=== PATIENT | female | born 1985 | race Caucasian/White ===

== ENCOUNTER 2019-09-22 23:46 | Emergency (ER) | payer MEDICAID ==
[2019-09-23 00:41] LABS: BLOOD UREA NITROGEN,BUN 16 mg/dL (7.0-18.0); CARBON DIOXIDE,CO2 29.9 mmol/L (21.0-32.0); CHLORIDE,CL 102 mmol/L (98-107); GLUCOSE RANDOM 93 mg/dL (74-106); POTASSIUM,K 3.7 mmol/L (3.5-5.1); SODIUM,NA 139 mmol/L (136-145)
--- NOTE | 2019-09-23 00:58 | EDM.PDOC ---
ED HPI GENERAL MEDICAL PROBLEM - General Chief Complaint: Skin Complaint Stated Complaint: BOTH ANKLES HURT Time Seen by Provider: 09/22/19 23:47 Source of Information: Reports: Patient History Limitations: Reports: No Limitations - History of Present Illness INITIAL COMMENTS - FREE TEXT/NARRATIVE: This patient is a 34-year-old female with no pertinent past medical history presenting with lower extremity edema and a rash. She reports a 2-week history of intermittent bilateral lower extremity edema, involving both feet and both ankles. She also reports a 2-week history of intermittent red macular rash to the bilateral lower extremities, involving the lower legs and ankles but not the feet or the thighs. She does report that she has been using a new razor to shave her legs. Denies any new soaps, detergents, carpets, does have a new dog. Rash is not located anywhere else on the body. She denies any fever, chills, urinary changes, history of autoimmune disease, or intraoral or genital ulcers or lesions. No prior history of congestive heart failure, coronary artery disease, renal disease, or hepatic disease. - Related Data Allergies Allergy/AdvReac Type Severity Reaction Status Date / Time No Known Allergies Allergy Verified 08/22/14 13:13 MDT Home Meds: Home Meds Phenazopyridine HCl [Pyridium] 200 mg PO Q8H #6 tablet 08/22/14 [Rx] Sulfamethoxazole/Trimethoprim [Bactrim Ds Tablet] 1 each PO BID #14 tablet 08/22 [Rx] Past Medical History - Past Health History Medical/Surgical History: Denies Medical/Surgical History - Past Surgical History Musculoskeletal Surgical History: Reports: Other (See Below) (Left ankle surgery ) Social & Family History - Family History Family Medical History: Noncontributory ED ROS GENERAL - Review of Systems Review Of Systems: Comprehensive ROS is negative, except as noted in HPI. Constitutional: Denies: Fever, Chills HEENT: Reports: No Symptoms Respiratory: Denies: Shortness of Breath Cardiovascular: Reports: Edema. Denies: Chest Pain, Dyspnea on Exertion, Orthopnea, Syncope Endocrine: Reports: No Symptoms GI/Abdominal: Denies: Abdominal Pain, Diarrhea, Nausea, Vomiting : Denies: Dysuria, Flank Pain, Urgency Musculoskeletal: Reports: Joint Pain, Joint Swelling (Bilateral ankles), Other ( Bilateral ankle pain) Skin: Reports: Rash. Denies: Cyanosis, Jaundice, Pallor, Urticaria Neurological: Reports: No Symptoms Psychiatric: Reports: No Symptoms Hematologic/Lymphatic: Reports: No Symptoms Immunologic: Reports: No Symptoms. Denies: Environmental Allergy ED EXAM, SKIN/RASH Exam: See Below Text/Narrative:: All signs reviewed. Nursing notes reviewed. Constitutional: Awake, alert, non-distressed Head: Normocephalic, atraumatic Eyes: EOMI, PERRL at 3 mm bilaterally, conjunctiva normal, no discharge, no scleral icterus Ears, Nose, Throat: External ears and ears normal, moist oral mucosa Cardiovascular: 2+ radial pulse, capillary refill less than 2 seconds. 1+ lower extremity edema involving the bilateral lower extremities from the ankles to the shins. Pulmonary: normal work of breathing, no accessory muscle use Abdomen/GI: Soft, nontender, nondistended, no guarding or rigidity, no masses Musculoskeletal: No deformities. Integumentary: Appropriate color for ethnicity, warm, dry, no pallor or jaundice. Erythematous macular rash in a scattered distribution involving the bilateral lower extremities, no purpura, no petechiae, no intraoral oral mucosal lesions appreciated. Neurologic: Alert, answering questions appropriately, normal speech, no facial droop, moving all extremities well Psychiatric: Appropriate mood and affect, normal thought process Course - Vital Signs Text/Narrative:: 34-year-old female presenting with a rash and new lower extremity edema. On arrival she was tachycardic but afebrile, nontoxic-appearing, well-appearing. Physical examination revealed a erythematous macular rash to the lower extremities along with some pedal edema. No evidence of intraoral involvement, no rash outside of the legs. Did notice resting tachycardia but she denies any history of chest discomfort, shortness of breath, unilateral leg swelling, volume depletion, or hemorrhage. Heart rate normalized to 92 prior to discharge without any intervention IV access was established and labs were sent off. Laboratory work-up was largely unrevealing. CBC shows normal cell lines except for mild thrombocytosis , no eosinophilia. Electrolyte panel is reassuring. Renal function is normal. Albumin normal. Troponin and BNP are within normal limits. Normal hepatic markers. Urinalysis shows trace blood, positive nitrites, 1+ bacteria, small leukocyte esterase, but patient has no symptoms to suggest cystitis, so suspect this could be asymptomatic bacteria. Regarding the patient's pedal edema, there is no evidence of congestive heart failure, hepatic failure, or renal failure. I recommended [id number] compression stockings along with elevating her feet at night and decreasing her salt intake and having her follow-up with a primary medical doctor. I am suspicious that her lower extremity rash could be due to the new razor that she is using to shave both of her legs. No evidence of a systemic allergic reaction or mucosal involvement. Recommended that she change her razor and shaving products and also recommended that she try [id number] Benadryl cream or oral Benadryl if needed for any itching. Did not recommend steroids this point. Patient is well-appearing and stable to discharge with outpatient primary care follow-up. Strict ED return precautions were provided and all questions were answered prior to discharge. Last Recorded V/S: Last Vital Signs Temp 36.2 C 09/22/19 23:58 Pulse 122 H 09/22/19 23:58 Resp 18 09/22/19 23:58 BP 127/75 09/22/19 23:58 Pulse Ox 99 09/22/19 23:58 - Orders/Labs/Meds Orders: Active Orders 24 hr Category Date Time Status EKG 12 Lead [EKG Documentation Completion] [RC] STAT Care 09/23/19 00:03 Active Labs: Laboratory Tests 09/23/19 09/23/19 09/23/19 Range/Units 00:06 00:06 00:06 WBC 9.44 (4.0-11.0) K/uL RBC 4.68 (4.30-5.90) M/uL Hgb 13.3 (12.0-16.0) g/dL Hct 41.4 (36.0-46.0) % MCV 88.5 (80.0-98.0) fL MCH 28.4 (27.0-32.0) pg MCHC 32.1 (31.0-37.0) g/dL RDW Std Deviation 45.1 (28.0-62.0) fl RDW Coeff of Mj 14 (11.0-15.0) % Plt Count 421 H (150-400) K/uL MPV 9.40 (7.40-12.00) fL Neut % (Auto) 47.8 L (48.0-80.0) % Lymph % (Auto) 41.8 H (16.0-40.0) % [place] % (Auto) 7.4 (0.0-15.0) % Eos % (Auto) 2.8 (0.0-7.0) % Baso % (Auto) 0.2 (0.0-1.5) % Neut # (Auto) 4.5 (1.4-5.7) K/uL Lymph # (Auto) 4.0 H (0.6-2.4) K/uL [place] # (Auto) 0.7 (0.0-0.8) K/uL Eos # (Auto) 0.3 (0.0-0.7) K/uL Baso # (Auto) 0.0 (0.0-0.1) K/uL Nucleated RBC % 0.0 /100WBC Nucleated RBCs # 0 K/uL Sodium 139 (136-145) mmol/L Potassium 3.7 (3.5-5.1) mmol/L Chloride 102 (98-107) mmol/L Carbon Dioxide 29.9 (21.0-32.0) mmol/L BUN 16 (7.0-18.0) mg/dL Creatinine 1.0 (0.6-1.0) mg/dL Est Cr Clr Drug Dosing TNP Estimated GFR (MDRD) > 60.0 ml/min Glucose 93 (74-106) mg/dL Calcium 9.2 (8.5-10.1) mg/dL Total Bilirubin 0.1 L (0.2-1.0) mg/dL AST 23 (15-37) IU/L ALT 18 (14-63) IU/L Alkaline Phosphatase 78 (46-116) U/L Troponin I < 0.050 (0.000-0.056) ng/mL B-Natriuretic Peptide 12 (<100) PG/ML Total Protein 7.1 (6.4-8.2) g/dL Albumin 3.6 (3.4-5.0) g/dL Globulin 3.5 (2.6-4.0) g/dL Albumin/Globulin Ratio 1.0 (0.9-1.6) Urine Color Urine Appearance Urine pH (5.0-8.0) Ur Specific [place] (1.001-1.035) Urine Protein (NEGATIVE) mg/dL Urine Glucose (UA) (NEGATIVE) mg/dL Urine Ketones (NEGATIVE) mg/dL Urine Occult Blood (NEGATIVE) Urine Nitrite (NEGATIVE) Urine Bilirubin (NEGATIVE) Urine Urobilinogen (<2.0) EU/dL Ur Leukocyte Esterase (NEGATIVE) Urine RBC (0-2/HPF) Urine WBC (0-5/HPF) Ur Epithelial Cells (NONE-FEW) Urine Bacteria (NEGATIVE) 09/23/19 Range/Units 00:53 WBC (4.0-11.0) K/uL RBC (4.30-5.90) M/uL Hgb (12.0-16.0) g/dL Hct (36.0-46.0) % MCV (80.0-98.0) fL MCH (27.0-32.0) pg MCHC (31.0-37.0) g/dL RDW Std Deviation (28.0-62.0) fl RDW Coeff of Mj (11.0-15.0) % Plt Count (150-400) K/uL MPV (7.40-12.00) fL Neut % (Auto) (48.0-80.0) % Lymph % (Auto) (16.0-40.0) % [place] % (Auto) (0.0-15.0) % Eos % (Auto) (0.0-7.0) % Baso % (Auto) (0.0-1.5) % Neut # (Auto) (1.4-5.7) K/uL Lymph # (Auto) (0.6-2.4) K/uL [place] # (Auto) (0.0-0.8) K/uL Eos # (Auto) (0.0-0.7) K/uL Baso # (Auto) (0.0-0.1) K/uL Nucleated RBC % /100WBC Nucleated RBCs # K/uL Sodium (136-145) mmol/L Potassium (3.5-5.1) mmol/L Chloride (98-107) mmol/L Carbon Dioxide (21.0-32.0) mmol/L BUN (7.0-18.0) mg/dL Creatinine (0.6-1.0) mg/dL Est Cr Clr Drug Dosing Estimated GFR (MDRD) ml/min Glucose (74-106) mg/dL Calcium (8.5-10.1) mg/dL Total Bilirubin (0.2-1.0) mg/dL AST (15-37) IU/L ALT (14-63) IU/L Alkaline Phosphatase (46-116) U/L Troponin I (0.000-0.056) ng/mL B-Natriuretic Peptide (<100) PG/ML Total Protein (6.4-8.2) g/dL Albumin (3.4-5.0) g/dL Globulin (2.6-4.0) g/dL Albumin/Globulin Ratio (0.9-1.6) Urine Color YELLOW Urine Appearance SLT CLOUDY Urine pH 6.0 (5.0-8.0) Ur Specific [place] >= 1.030 (1.001-1.035) Urine Protein NEGATIVE (NEGATIVE) mg/dL Urine Glucose (UA) NEGATIVE (NEGATIVE) mg/dL Urine Ketones NEGATIVE (NEGATIVE) mg/dL Urine Occult Blood TRACE-INTACT H (NEGATIVE) Urine Nitrite POSITIVE H (NEGATIVE) Urine Bilirubin NEGATIVE (NEGATIVE) Urine Urobilinogen 0.2 (<2.0) EU/dL Ur Leukocyte Esterase SMALL H (NEGATIVE) Urine RBC 1-2 (0-2/HPF) Urine WBC 2-3 (0-5/HPF) Ur Epithelial Cells RARE (NONE-FEW) Urine Bacteria 1+ H (NEGATIVE) Departure - Departure Time of Disposition: 01:29 Disposition: Home, Self-Care 01 Condition: Good Clinical Impression: Bilateral lower extremity edema, Macular rash - Discharge Information *PRESCRIPTION DRUG MONITORING PROGRAM REVIEWED*: Not Applicable *COPY OF PRESCRIPTION DRUG MONITORING REPORT IN PATIENT HELEN: Not Applicable Instructions: Rash, Adult, Peripheral Edema Referrals: [facility] [Provider Group] - 1 Week (For follow-up of swelling and rash.) Forms: ED Department Discharge Additional Instructions: I recommend trying compression stockings along with elevating your legs at night while in bed and reducing the amount of salt in your diet to help address the leg swelling. I would try a different brand of razor and shaving products to see if this makes your leg rash go away. You can try [id number] Benadryl cream or oral Benadryl if you are having issues with itching. Please follow-up with a primary medical clinic in the next week if your symptoms do not improve, and return to the emergency department immediately if your symptoms worsen. The following information is given to patients seen in the emergency department who are being discharged to home. This information is to outline your options for follow-up care. We provide all patients seen in our emergency department with a follow-up referral. The need for follow-up, as well as the timing and circumstances, are variable depending upon the specifics of your emergency department visit. If you don't have a primary care physician on staff, we will provide you with a referral. We always advise you to contact your personal physician following an emergency department visit to inform them of the circumstance of the visit and for follow-up with them and/or the need for any referrals to a consulting specialist. The emergency department will also refer you to a specialist when appropriate. This referral assures that you have the opportunity for follow-up care with a specialist. All of these measure are taken in an effort to provide you with optimal care, which includes your follow-up. Under all circumstances we always encourage you to contact your private physician who remains a resource for coordinating your care. When calling for follow-up care, please make the office aware that this follow-up is from your recent emergency room visit. If for any reason you are refused follow-up, please contact the [facility] Emergency Department at and asked to speak to the emergency department charge nurse. Sepsis Event Note - Evaluation Sepsis Screening Result: No Definite Risk - Focused Exam Vital Signs: Vital Signs Temp Pulse Resp BP Pulse Ox 09/22/19 23:58 36.2 C 122 H 18 127/75 99 Date Exam was Performed: 09/23/19 Time Exam was Performed: 01:27 - My Orders Last 24 Hours: My Active Orders 09/23/19 00:03 EKG 12 Lead [EKG Documentation Completion] [RC] STAT - Assessment/Plan Last 24 Hours: My Active Orders 09/23/19 00:03 EKG 12 Lead [EKG Documentation Completion] [RC] STAT
[2019-09-23 01:29] VITALS: BP 120/78; PULSE 88
== END 2019-09-23 01:38 | disposition home or self-care (01) ==
LOC: MW.ED 23:46
DX: R60.0 Localized edema (principal); R23.8 Other skin changes
CPT/HCPCS: 36415; 80053; 81001; 83880; 84484; 85025; 99283; 99284-25

== ENCOUNTER 2020-08-12 23:24 | Inpatient (IN) | payer SELFPAY ==
--- NOTE | 2020-08-12 23:50 | EDM.PDOC ---
ED HPI GENERAL MEDICAL PROBLEM - General Chief Complaint: Skin Complaint Stated Complaint: POSSIBLE INFECTION LT ARM Time Seen by Provider: 08/12/20 23:29 Source of Information: Reports: Patient History Limitations: Reports: No Limitations - History of Present Illness INITIAL COMMENTS - FREE TEXT/NARRATIVE: 35-year-old female presents with left arm redness and swelling after shooting up with IV methamphetamine yesterday. Patient denies fever, chills, headache, chest pain, shortness of breath, abdominal pain, focal numbness or weakness. ROS: A 10-point review of systems, other than pertinent positives and negatives as stated per HPI, is otherwise negative Past medical history: No additional pertinent history Past Surgical history: No additional pertinent history Social history: No additional pertinent history Family history: No additional pertinent history PHYSICAL EXAM General: AOx4, GCS = 15, No distress HEENT: dry mucous membrane Neck: supple, no meningismus, no Kernig or Brudzinski Cardiac: S1S2 tachycardia Respiratory: CTAB, no crackles or rales, no wheezing Abdomen: Soft, nontender, no rebound or guarding, nondistended, no pulsatile mass. Back: nontender Musculoskeletal: NVI distally, left antecubital region erythema, induration, no fluctuance Neuro: No focal deficits, CN 2 - 12 WNL. left arm Pain Score (Numeric/FACES): 8 - Related Data Allergies Allergy/AdvReac Type Severity Reaction Status Date / Time No Known Allergies Allergy Verified 08/12/20 23:34 Home Meds: Home Meds . 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 Musculoskeletal History: Reports: None Neurological History: Reports: None Psychiatric History: Reports: None Endocrine/Metabolic History: Reports: None Insulin Pump Model and Shoe Treer: None Hematologic History: Reports: None Immunologic History: Reports: None Oncologic (Cancer) History: Reports: None Dermatologic History: Reports: None - Infectious Disease History Infectious Disease History: Reports: None - Past Surgical History Head Surgeries/Procedures: Reports: None Musculoskeletal Surgical History: Reports: Other (See Below) Other Musculoskeletal Surgeries/Procedures:: L ankle surgery 8 years ago. Social & Family History - Family History Family Medical History: No Pertinent Family History - Caffeine Use Caffeine Use: Reports: Coffee, Energy Drinks, Soda - Recreational Drug Use Recreational Drug Use: Yes Drug Use in Last 12 Months: Yes Recreational Drug Type: Reports: Marijuana/Hashish, Methamphetamine ED ROS GENERAL - Review of Systems Review Of Systems: See Below (see dictation) ED EXAM, SKIN/RASH Exam: See Below (see dictation) ED SKIN PROCEDURES - Additional/Other Procedure(s) Other (Free Text) Procedure(s): Musculoskeletal ultrasound Indication: Evaluation for drainable soft tissue fluid collection Notes: Transverse and sagittal views of area of maximal swelling were obtained Findings:-Soft tissue cobblestoning present-no evidence of drainable fluid c ollection-no retained foreign body Impression: Cellulitis and localized tissue edema without evidence of drainable fluid collection Performed and interpreted at the time of patient care, scan image(s) archived. Certified by Alphonso Rizzo MD Course - Vital Signs Last Recorded V/S: Last Vital Signs Temp 97.4 F 08/12/20 23:34 Pulse 116 H 08/12/20 23:34 Resp 18 08/12/20 23:34 BP 117/68 08/12/20 23:34 Pulse Ox 99 08/12/20 23:34 - Orders/Labs/Meds Orders: Active Orders 24 hr Category Date Time Status Patient Status [ADT] Routine ADT 08/12/20 23:54 Ordered Cardiac Monitoring [RC] . DIRECTED Care 08/12/20 23:51 Active C-REACTIVE PROTEIN [CHEM] Stat Lab 08/12/20 23:51 Ordered CBC WITH AUTO DIFF [HEME] Stat Lab 08/12/20 23:51 Ordered COMPREHENSIVE METABOLIC PN,CMP [CHEM] Stat Lab 08/12/20 23:51 Ordered CORONAVIRUS COVID-19 KENNY [MOLEC] Stat Lab 08/12/20 23:51 Ordered CREATINE KINASE,CK [CHEM] Stat Lab 08/12/20 23:51 Ordered CULTURE BLOOD [BC] Stat Lab 08/12/20 23:52 Ordered CULTURE BLOOD [BC] Stat Lab 08/12/20 23:52 Ordered LACTATE WITH REFLEX [BG] Stat Lab 08/12/20 23:51 Ordered Lactated Ringers [Ringers, Lactated] 1,000 ml Med 08/12/20 23:51 Active IV .BOLUS Piperacillin/Tazobactam [Piperacil-Tazobact] 4.5 gm Med 08/12/20 23:51 Active Sodium Chloride 0.9% [Normal Saline] 100 ml IV ONETIME Sodium Chloride 0.9% [Saline Flush] Med 08/12/20 23:51 Active 10 ml FLUSH ASDIRECTED PRN Sodium Chloride 0.9% [Saline Flush] Med 08/12/20 23:51 Active 2.5 ml FLUSH ASDIRECTED PRN Vancomycin 1,500 mg Med 08/12/20 23:51 Active Sodium Chloride 0.9% [Normal Saline] 100 ml IV ONETIME Blood Culture x2 Reflex Set [OM.PC] Stat Oth 08/12/20 23:51 Ordered Saline Lock Insert [OM.PC] Stat Oth 08/12/20 23:51 Ordered Medication Orders Lactated Ringer's (Ringers, Lactated) 1,000 mls @ 999 mls/hr IV .BOLUS ONE Stop: 08/13/20 00:51 Vancomycin HCl 1,500 mg/ (Sodium Chloride) 100 mls @ 100 mls/hr IV ONETIME ONE Stop: 08/13/20 00:50 Piperacillin Sod/Tazobactam (Sod 4.5 gm/ Sodium Chloride) 100 mls @ 100 mls/hr IV ONETIME ONE Stop: 08/13/20 00:50 Sodium Chloride (Sodium Chloride 0.9% 10 Ml Syringe) 10 ml FLUSH ASDIRECTED PRN PRN Reason: Keep Vein Open Sodium Chloride (Sodium Chloride 0.9% 2.5 Ml Syringe) 2.5 ml FLUSH ASDIRECTED PRN PRN Reason: Keep Vein Open Meds: Medications Generic Name Dose Route Start Last Admin Trade Name Freq PRN Reason Stop Dose Admin Lactated Ringer's 1,000 mls @ 999 mls/hr 08/12/20 23:51 Ringers, Lactated IV 08/13/20 00:51 .BOLUS ONE Vancomycin HCl 1,500 mg/ 100 mls @ 100 mls/hr 08/12/20 23:51 Sodium Chloride IV 08/13/20 00:50 ONETIME ONE Piperacillin Sod/Tazobactam 100 mls @ 100 mls/hr 08/12/20 23:51 Sod 4.5 gm/ Sodium Chloride IV 08/13/20 00:50 ONETIME ONE Sodium Chloride 10 ml 08/12/20 23:51 Sodium Chloride 0.9% 10 Ml Syringe FLUSH ASDIRECTED PRN Keep Vein Open Sodium Chloride 2.5 ml 08/12/20 23:51 Sodium Chloride 0.9% 2.5 Ml Syringe FLUSH ASDIRECTED PRN Keep Vein Open - Re-Assessments/Exams Free Text/Narrative Re-Assessment/Exam: 08/12/20 23:[address] Calin Mcdonald, who agrees to admit patient. The hospitalist's documentation supersedes all other documentation on this patient with regard to any conflicts or discrepancies from this point forward. Any emergency conditions have been treated to the ability of the ED prior to admission. Departure - Departure Time of Disposition: 23:56 Disposition: Admitted As Inpatient 67 Condition: Good Clinical Impression: Cellulitis, IVDU (intravenous drug user) - Discharge Information *PRESCRIPTION DRUG MONITORING PROGRAM REVIEWED*: Not Applicable *COPY OF PRESCRIPTION DRUG MONITORING REPORT IN PATIENT HELEN: Not Applicable Referrals: PCP,None [Primary Care Provider] - Forms: ED Department Discharge Sepsis Event Note (ED) - Evaluation Sepsis Screening Result: No Definite Risk - Focused Exam Vital Signs: Vital Signs Temp Pulse Resp BP Pulse Ox 08/12/20 23:34 97.4 F 116 H 18 117/68 99 - My Orders Last 24 Hours: My Active Orders 08/12/20 23:51 Cardiac Monitoring [RC] . DIRECTED C-REACTIVE PROTEIN [CHEM] Stat CBC WITH AUTO DIFF [HEME] Stat COMPREHENSIVE METABOLIC PN,CMP [CHEM] Stat CORONAVIRUS COVID-19 KENNY [MOLEC] Stat CREATINE KINASE,CK [CHEM] Stat LACTATE WITH REFLEX [BG] Stat Lactated Ringers [Ringers, Lactated] 1,000 ml IV .BOLUS Piperacillin/Tazobactam [Piperacil-Tazobact] 4.5 gm Sodium Chloride 0.9% [Norm al Saline] 100 ml IV ONETIME Sodium Chloride 0.9% [Saline Flush] 10 ml FLUSH ASDIRECTED PRN Sodium Chloride 0.9% [Saline Flush] 2.5 ml FLUSH ASDIRECTED PRN Vancomycin 1,500 mg Sodium Chloride 0.9% [Normal Saline] 100 ml IV ONETIME Blood Culture x2 Reflex Set [OM.PC] Stat Saline Lock Insert [OM.PC] Stat 08/12/20 23:52 CULTURE BLOOD [BC] Stat CULTURE BLOOD [BC] Stat 08/12/20 23:54 Patient Status [ADT] Routine - Assessment/Plan Last 24 Hours: My Active Orders 08/12/20 23:51 Cardiac Monitoring [RC] . DIRECTED C-REACTIVE PROTEIN [CHEM] Stat CBC WITH AUTO DIFF [HEME] Stat COMPREHENSIVE METABOLIC PN,CMP [CHEM] Stat CORONAVIRUS COVID-19 KENNY [MOLEC] Stat CREATINE KINASE,CK [CHEM] Stat LACTATE WITH REFLEX [BG] Stat Lactated Ringers [Ringers, Lactated] 1,000 ml IV .BOLUS Piperacillin/Tazobactam [Piperacil-Tazobact] 4.5 gm Sodium Chloride 0.9% [Normal Saline] 100 ml IV ONETIME Sodium Chloride 0.9% [Saline Flush] 10 ml FLUSH ASDIRECTED PRN Sodium Chloride 0.9% [Saline Flush] 2.5 ml FLUSH ASDIRECTED PRN Vancomycin 1,500 mg Sodium Chloride 0.9% [Normal Saline] 100 ml IV ONETIME Blood Culture x2 Reflex Set [OM.PC] Stat Saline Lock Insert [OM.PC] Stat 08/12/20 23:52 CULTURE BLOOD [BC] Stat CULTURE BLOOD [BC] Stat 08/12/20 23:54 Patient Status [ADT] Routine
[2020-08-12] MEDS ORDERED: Lactated Ringers 1,000 ML IV ONE (23:51)
[2020-08-12] MEDS ORDERED: Sodium Chloride 0.9% 2.5 ML Syringe FLUSH PRN (23:51)
[2020-08-12] MEDS ORDERED: Piperacillin/Tazobactam 4.5 GM in Sodium Chloride 0.9% 100 ML IV ONE (23:51)
[2020-08-12] MEDS ORDERED: Sodium Chloride 0.9% 10 ML Syringe FLUSH PRN (23:51)
[2020-08-13 00:32] LABS: BLOOD UREA NITROGEN,BUN 13 mg/dL (7.0-18.0); CARBON DIOXIDE,CO2 24.6 mmol/L (21.0-32.0); CHLORIDE,CL 102 mmol/L (98-107); GLUCOSE RANDOM 119 mg/dL (74-106); SODIUM,NA 134 mmol/L (136-145)
[2020-08-13] MEDS ORDERED: Sodium Chloride 0.9% 1,000 ML IV SCH (01:45)
[2020-08-13] MEDS ORDERED: Piperacillin/Tazobactam 3.375 GM in Sodium Chloride 0.9% 50 ML IV SCH (01:45)
[2020-08-13] MEDS ORDERED: VANCOmycin 1.5 GM/300 ML 1.5 GM in Premix Bag 1 BAG IV ONE (02:00)
[2020-08-13 05:58] LABS: BLOOD UREA NITROGEN,BUN 11 mg/dL (7.0-18.0); CARBON DIOXIDE,CO2 24.8 mmol/L (21.0-32.0); CHLORIDE,CL 101 mmol/L (98-107); GLUCOSE RANDOM 128 mg/dL (74-106); POTASSIUM,K 3.6 mmol/L (3.5-5.1); SODIUM,NA 128 mmol/L (136-145)
[2020-08-13] MEDS: Piperacillin/Tazobactam 3.375 GM in Sodium Chloride 0.9% 50 ML IV SCH ×2 (06:12→11:45)
--- NOTE | 2020-08-13 09:37 | PCM.HP.2 ---
H&P History of Present Illness - General Date of Service: 08/13/20 Admit Problem/Dx: Admission Diagnosis/Problem Admission Diagnosis/Problem Cellulitis - History of Present Illness Initial Comments - Free Text/Narative: 35 yo female with pmh of meth abuse who presented to the ED with left arm rash over bicep. Patient had been six years sober from meth and relapsed three months ago. PAtient reports two days ago missed an IV injection of meth and went subcotaneously in her left arm. The injection site became red and swollen and painful which prompted her to go to the ED. left arm Pain Score (Numeric/FACES): 8 - Related Data Allergies/Adverse Reactions: Allergies Allergy/AdvReac Type Severity Reaction Status Date / Time No Known Allergies Allergy Verified 08/13/20 01:46 Home Medications: Home Meds Sulfamethoxazole/Trimethoprim [Bactrim Ds Tablet] 1 each PO BID #14 tablet 08/13/20 [Rx] Past Medical History - Past Health History Medical/Surgical History: Denies Medical/Surgical History HEENT History: Reports: None Cardiovascular History: Reports: None Respiratory History: Reports: None Gastrointestinal History: Reports: None Genitourinary History: Reports: None 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: Musculoskeletal History: Reports: Fracture Neurological History: Reports: None Psychiatric History: Reports: None Endocrine/Metabolic History: Reports: None Insulin Pump Model and Yarn Rewinder: None Hematologic History: Reports: None Immunologic History: Reports: None Oncologic (Cancer) History: Reports: None Dermatologic History: Reports: None - Infectious Disease History Infectious Disease History: Reports: Chicken Pox - Past Surgical History Head Surgeries/Procedures: Reports: None Musculoskeletal Surgical History: Reports: Other (See Below) Other Musculoskeletal Surgeries/Procedures:: L ankle surgery 8 years ago. Social & Family History - Family History Family Medical History: No Pertinent Family History - Tobacco Use Tobacco Use Status *Q: Current Every Day Tobacco User Years of Tobacco use: 15 Packs/Tins Daily: 0.5 Used Tobacco, but Quit: No Second Hand Smoke Exposure: No - Caffeine Use Caffeine Use: Reports: Coffee, Energy Drinks, Soda, Tea - Recreational Drug Use Recreational Drug Use: Yes Drug Use in Last 12 Months: Yes Recreational Drug Type: Reports: Marijuana/Hashish, Methamphetamine Recreational Drug Use Frequency: Daily Recreational Drug Last Use: 08/11 H&P Review of Systems - Review of Systems: Review Of Systems: Comprehensive ROS is negative, except as noted in HPI. Exam - Exam Exam: See Below - Vital Signs Vital Signs: Last Vital Signs Temp 37.3 C 08/13/20 08:00 Pulse 95 08/13/20 08:00 Resp 18 08/13/20 08:00 BP 111/60 08/13/20 08:00 Pulse Ox 100 08/13/20 08:00 Weight: 99.11 kg - Exam General: Alert, Oriented HEENT: Mucosa Moist & [place] Lungs: Clear to Auscultation, Normal Respiratory Effort Cardiovascular: Regular Rate, Regular Rhythm GI/Abdominal Exam: Normal Bowel Sounds, Soft, Non-Tender Back Exam: Other (7-10 cm area of induration and erythema of left bicep. No area of fluctiance or drainage) - Patient Data Lab Results Last 24 hrs: Laboratory Results - last 24 hr 08/13/20 08/13/20 08/13/20 Range/Units 00:00 00:00 00:00 WBC 16.78 H (4.0-11.0) K/uL RBC 4.91 (4.30-5.90) M/uL Hgb 14.8 (12.0-16.0) g/dL Hct 43.4 (36.0-46.0) % MCV 88.4 (80.0-98.0) fL MCH 30.1 (27.0-32.0) pg MCHC 34.1 (31.0-37.0) g/dL RDW Std Deviation 46.2 (28.0-62.0) fl RDW Coeff of Mj 14 (11.0-15.0) % Plt Count 372 (150-400) K/uL MPV 10.00 (7.40-12.00) fL Neut % (Auto) 78.9 (48.0-80.0) % Lymph % (Auto) 13.5 L (16.0-40.0) % Kerr % (Auto) 7.0 (0.0-15.0) % Eos % (Auto) 0.5 (0.0-7.0) % Baso % (Auto) 0.1 (0.0-1.5) % Neut # (Auto) 13.3 H (1.4-5.7) K/uL Lymph # (Auto) 2.3 (0.6-2.4) K/uL Kerr # (Auto) 1.2 H (0.0-0.8) K/uL Eos # (Auto) 0.1 (0.0-0.7) K/uL Baso # (Auto) 0.0 (0.0-0.1) K/uL Nucleated RBC % 0.0 /100WBC Nucleated RBCs # 0 K/uL Lactate 1.9 (0.20-2.00) mmol/L Sodium 134 L (136-145) mmol/L Potassium 4.0 (3.5-5.1) mmol/L Chloride 102 (98-107) mmol/L Carbon Dioxide 24.6 (21.0-32.0) mmol/L BUN 13 (7.0-18.0) mg/dL Creatinine 1.0 (0.6-1.0) mg/dL Est Cr Clr Drug Dosing 74.21 mL/min Estimated GFR (MDRD) > 60.0 ml/min Glucose 119 H (74-106) mg/dL Calcium 8.9 (8.5-10.1) mg/dL Total Bilirubin 0.5 (0.2-1.0) mg/dL AST 15 (15-37) IU/L ALT 24 (14-63) IU/L Alkaline Phosphatase 72 (46-116) U/L Creatine Kinase 142 (26-308) U/L C-Reactive Protein 0.50 (0.00-0.90) mg/dL Total Protein 7.1 (6.4-8.2) g/dL Albumin 3.7 (3.4-5.0) g/dL Globulin 3.4 (2.6-4.0) g/dL Albumin/Globulin Ratio 1.1 (0.9-1.6) HCG, Qual (NEG) SARS-CoV-2 RNA (KENNY) (NEGATIVE) 08/13/20 08/13/20 08/13/20 Range/Units 00:00 00:12 05:26 WBC 16.06 H (4.0-11.0) K/uL RBC 4.61 (4.30-5.90) M/uL Hgb 13.4 (12.0-16.0) g/dL Hct 40.6 (36.0-46.0) % MCV 88.1 (80.0-98.0) fL MCH 29.1 (27.0-32.0) pg MCHC 33.0 (31.0-37.0) g/dL RDW Std Deviation 46.3 (28.0-62.0) fl RDW Coeff of Mj 14 (11.0-15.0) % Plt Count 333 (150-400) K/uL MPV 9.70 (7.40-12.00) fL Neut % (Auto) 71.5 (48.0-80.0) % Lymph % (Auto) 20.9 (16.0-40.0) % Kerr % (Auto) 6.8 (0.0-15.0) % Eos % (Auto) 0.7 (0.0-7.0) % Baso % (Auto) 0.1 (0.0-1.5) % Neut # (Auto) 11.5 H (1.4-5.7) K/uL Lymph # (Auto) 3.4 H (0.6-2.4) K/uL Kerr # (Auto) 1.1 H (0.0-0.8) K/uL Eos # (Auto) 0.1 (0.0-0.7) K/uL Baso # (Auto) 0.0 (0.0-0.1) K/uL Nucleated RBC % 0.0 /100WBC Nucleated RBCs # 0 K/uL Lactate (0.20-2.00) mmol/L Sodium (136-145) mmol/L Potassium (3.5-5.1) mmol/L Chloride (98-107) mmol/L Carbon Dioxide (21.0-32.0) mmol/L BUN (7.0-18.0) mg/dL Creatinine (0.6-1.0) mg/dL Est Cr Clr Drug Dosing mL/min Estimated GFR (MDRD) ml/min Glucose (74-106) mg/dL Calcium (8.5-10.1) mg/dL Total Bilirubin (0.2-1.0) mg/dL AST (15-37) IU/L ALT (14-63) IU/L Alkaline Phosphatase (46-116) U/L Creatine Kinase (26-308) U/L C-Reactive Protein (0.00-0.90) mg/dL Total Protein (6.4-8.2) g/dL Albumin (3.4-5.0) g/dL Globulin (2.6-4.0) g/dL Albumin/Globulin Ratio (0.9-1.6) HCG, Qual NEGATIVE (NEG) SARS-CoV-2 RNA (KENNY) NEGATIVE (NEGATIVE) 08/13/20 Range/Units 05:26 WBC (4.0-11.0) K/uL RBC (4.30-5.90) M/uL Hgb (12.0-16.0) g/dL Hct (36.0-46.0) % MCV (80.0-98.0) fL MCH (27.0-32.0) pg MCHC (31.0-37.0) g/dL RDW Std Deviation (28.0-62.0) fl RDW Coeff of Mj (11.0-15.0) % Plt Count (150-400) K/uL MPV (7.40-12.00) fL Neut % (Auto) (48.0-80.0) % Lymph % (Auto) (16.0-40.0) % Kerr % (Auto) (0.0-15.0) % Eos % (Auto) (0.0-7.0) % Baso % (Auto) (0.0-1.5) % Neut # (Auto) (1.4-5.7) K/uL Lymph # (Auto) (0.6-2.4) K/uL Kerr # (Auto) (0.0-0.8) K/uL Eos # (Auto) (0.0-0.7) K/uL Baso # (Auto) (0.0-0.1) K/uL Nucleated RBC % /100WBC Nucleated RBCs # K/uL Lactate (0.20-2.00) mmol/L Sodium 128 L (136-145) mmol/L Potassium 3.6 (3.5-5.1) mmol/L Chloride 101 (98-107) mmol/L Carbon Dioxide 24.8 (21.0-32.0) mmol/L BUN 11 (7.0-18.0) mg/dL Creatinine 0.9 (0.6-1.0) mg/dL Est Cr Clr Drug Dosing 82.45 mL/min Estimated GFR (MDRD) > 60.0 ml/min Glucose 128 H (74-106) mg/dL Calcium 8.1 L (8.5-10.1) mg/dL Total Bilirubin (0.2-1.0) mg/dL AST (15-37) IU/L ALT (14-63) IU/L Alkaline Phosphatase (46-116) U/L Creatine Kinase (26-308) U/L C-Reactive Protein (0.00-0.90) mg/dL Total Protein (6.4-8.2) g/dL Albumin (3.4-5.0) g/dL Globulin (2.6-4.0) g/dL Albumin/Globulin Ratio (0.9-1.6) HCG, Qual (NEG) SARS-CoV-2 RNA (KENNY) (NEGATIVE) Result Diagrams: 08/13/20 05:26 08/13/20 05:26 Lisandro Results Last 24 hrs: Microbiology 08/13/20 00:14 Anaerobic Blood Culture - Final Blood - Venous - Lab Draw Sepsis Event Note - Evaluation Sepsis Screening Result: Sepsis Risk - Focused Exam Vital Signs: Vital Signs Temp Pulse Resp BP Pulse Ox 08/13/20 08:00 37.3 C 95 18 111/60 100 08/13/20 04:00 37.0 C 91 16 91/51 L 96 08/13/20 01:31 36.1 C 95 18 122/75 100 08/13/20 00:27 36.2 C 94 18 110/72 98 08/12/20 23:34 36.3 C 116 H 18 117/68 99 Problem List Initiated/Reviewed/Updated: Yes Orders Last 24hrs: Active Orders 24 hr Category Date Time Status Patient Status [ADT] Routine ADT 08/12/20 23:54 Active Regular Diet [DIET] Diet 08/13/20 Breakfast Active CULTURE BLOOD [BC] Stat Lab 08/12/20 23:52 Received CULTURE BLOOD [BC] Stat Lab 08/12/20 23:52 Results VANCOMYCIN TROUGH [CHEM] Timed Lab 08/14/20 09:30 Ordered Pharmacy to Dose - Vancomycin Med 08/13/20 01:45 Active 1 dose .XX ASDIRECTED Piperacillin/Tazobactam [Piperacil-Tazobact] 3.375 gm Med 08/13/20 06:00 Active Sodium Chloride 0.9% [Normal Saline] 50 ml IV Q6H Sodium Chloride 0.9% [Normal Saline] 1,000 ml Med 08/13/20 01:45 Active IV ASDIRECTED Sodium Chloride 0.9% [Saline Flush] Med 08/12/20 23:51 Active 10 ml FLUSH ASDIRECTED PRN Sodium Chloride 0.9% [Saline Flush] Med 08/12/20 23:51 Active 2.5 ml FLUSH ASDIRECTED PRN Vancomycin 1.25 gm [facility] 08/13/20 10:00 Active Sodium Chloride 0.9% [Normal Saline (AdvBag)] 250 ml IV Q8H Blood Culture x2 Reflex Set [OM.PC] Stat Ot 08/12/20 23:51 Ordered Saline Lock Insert [OM.PC] Stat Ot 08/12/20 23:51 Ordered Medication Orders Sodium Chloride (Normal Saline) 1,000 mls @ 125 mls/hr IV ASDIRECTED [facility] Last Admin: 08/13/20 02:15 Dose: 125 mls/hr Documented by: LAINE Piperacillin Sod/Tazobactam (Sod 3.375 gm/ Sodium Chloride) 50 mls @ 100 mls/hr IV Q6H [facility] Last Admin: 08/13/20 06:12 Dose: 100 mls/hr Documented by: LAINE Vancomycin HCl 1.25 gm/ Sodium (Chloride) 250 mls @ 166.667 mls/hr IV Q8H [facility] Sodium Chloride (Sodium Chloride 0.9% 10 Ml Syringe) 10 ml FLUSH ASDIRECTED PRN PRN Reason: Keep Vein Open Sodium Chloride (Sodium Chloride 0.9% 2.5 Ml Syringe) 2.5 ml FLUSH ASDIRECTED PRN PRN Reason: Keep Vein Open Vancomycin HCl (Pharmacy To Dose - Vancomycin) 1 dose .XX ASDIRECTED [facility] Assessment/Plan Comment:: 35 yo female admitted for cellulitis after IV injection of Meth. Patient has received Vancomycin and Zosyn. I recommend patient stay at least another day to ensure improvement, but patient refuses. Patient states the pain and swelling has improved and she wants to go home on oral antibiotics. She agrees to come back if redness and swelling were to worsen or abscess were to form. Patient is anxious to get home as she reports she has no one to look after her dogs. Patient left against medical advice. She was prescribed Bactrim DS BID for seven more days.
[2020-08-13 13:04] VITALS: BP 118/75; PULSE 87
== END 2020-08-13 12:55 | disposition left against medical advice (07) | DRG 603 ==
LOC: MW.ED 23:24 → MW.MS 08-13 01:28
PROVIDERS: ADMIT Internal Medicine; ATTEND Internal Medicine
DX: L03.114 Cellulitis of left upper limb (principal); F17.200 Nicotine dependence, unspecified, uncomplicated; F15.90 Other stimulant use, unspecified, uncomplicated; Z79.899 Other long term (current) drug therapy
CPT/HCPCS: 36415; 80048; 80053; 82550; 83605; 84703; 85025; 86140; 87040; J2543; J3370; J7030; J7050; J7120; U0002

== ENCOUNTER 2021-03-31 14:52 | Emergency (ER) | payer SELFPAY ==
--- NOTE | 2021-03-31 16:22 | EDM.PDOC ---
ED HPI GENERAL MEDICAL PROBLEM - General Chief Complaint: ENT Problem Stated Complaint: FRONT TOOTH PTS DOG KNOCKED OUT Time Seen by Provider: 03/31/21 16:01 Source of Information: Reports: Patient History Limitations: Reports: No Limitations - History of Present Illness INITIAL COMMENTS - FREE TEXT/NARRATIVE: 36F no relevant PMHx presents for tooth avulsion. Last night patient was hit in the face by her dog's paw. He is a heavy dog. Her tooth #8 is now very loose and almost falling out. No other injuries. Not particularly painful unless it is messed with. - Related Data Allergies Allergy/AdvReac Type Severity Reaction Status Date / Time No Known Allergies Allergy Verified 08/13/20 01:46 Home Meds: Home Meds . 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: Musculoskeletal History: Reports: Fracture Neurological History: Reports: None Psychiatric History: Reports: None Endocrine/Metabolic History: Reports: None Insulin Pump Model and Electronic Engraver: None Hematologic History: Reports: None Immunologic History: Reports: None Oncologic (Cancer) History: Reports: None Dermatologic History: Reports: None - Infectious Disease History Infectious Disease History: Reports: Chicken Pox - Past Surgical History Head Surgeries/Procedures: Reports: None Musculoskeletal Surgical History: Reports: Other (See Below) Other Musculoskeletal Surgeries/Procedures:: L ankle surgery 8 years ago. Social & Family History - Family History Family Medical History: No Pertinent Family History - Caffeine Use Caffeine Use: Reports: None - Recreational Drug Use Recreational Drug Use: No ED ROS GENERAL - Review of Systems Review Of Systems: Comprehensive ROS is negative, except as noted in HPI. ED EXAM, GENERAL - Physical Exam Exam: See Below Exam Limited By: No Limitations General Appearance: Alert, WD/WN, No Apparent Distress Ears: Hearing Grossly Normal Nose: Normal Inspection Throat/Mouth: Normal Oropharynx, Normal Voice, No Airway Compromise, Other (loose tooth #8 but with good color, still within the gums) Head: Atraumatic, Normocephalic Neck: Normal Inspection Respiratory/Chest: No Respiratory Distress, Lungs Clear, Normal Breath Sounds, No Accessory Muscle Use Cardiovascular: Normal Peripheral Pulses, Regular Rate, Rhythm Extremities: Normal Inspection Neurological: Alert, Normal Cognition, Normal Gait Psychiatric: Normal Affect, Normal Mood Skin Exam: Warm, Dry, Intact, Normal Color Course - Vital Signs Last Recorded V/S: Last Vital Signs Temp 98 F 03/31/21 16:10 Pulse 98 03/31/21 16:10 Resp 18 03/31/21 16:10 BP 114/73 03/31/21 16:10 Pulse Ox 97 03/31/21 16:10 - Re-Assessments/Exams Free Text/Narrative Re-Assessment/Exam: 03/31/21 16:45 we do not have dental cement. Recommend dental f/u on Saturday Departure - Departure Time of Disposition: 16:45 Disposition: Home, Self-Care 01 Condition: Good Clinical Impression: Tooth avulsion Qualifiers: Encounter type: initial encounter Qualified Code(s): S03.2XXA - Dislocation of tooth, initial encounter - Discharge Information Referrals: PCP,None [Primary Care Provider] - Forms: ED Department Discharge Additional Instructions: Please follow-up with your dentist on Saturday. The following information is given to patients seen in the emergency department who are being discharged to home. This information is to outline your options for follow-up care. We provide all patients seen in our emergency department with a follow-up referral. The need for follow-up, as well as the timing and circumstances, are variable depending upon the specifics of your emergency department visit. If you don't have a primary care physician on staff, we will provide you with a referral. We always advise you to contact your personal physician following an emergency department visit to inform them of the circumstance of the visit and for follow-up with them and/or the need for any referrals to a consulting specialist. The emergency department will also refer you to a specialist when appropriate. This referral assures that you have the opportunity for follow-up care with a specialist. All of these measure are taken in an effort to provide you with optimal care, which includes your follow-up. Under all circumstances we always encourage you to contact your private physician who remains a resource for coordinating your care. When calling for follow-up care, please make the office aware that this follow-up is from your recent emergency room visit. If for any reason you are refused follow-up, please contact the [facility] Emergency Department at and asked to speak to the emergency department charge nurse. Please follow up with your primary care physician. If you do not have a primary care physician, see below: [facility] [address] [place] [address] [phone] [facility] [address] [place] [phone] [facility] [address] [place] [id number] Sepsis Event Note (ED) - Evaluation Sepsis Screening Result: No Definite Risk - Focused Exam Vital Signs: Vital Signs Temp Pulse Resp BP Pulse Ox 03/31/21 16:10 98 F 98 18 114/73 97
[2021-03-31 17:06] VITALS: BP 126/80; PULSE 102
== END 2021-03-31 17:04 | disposition home or self-care (01) ==
LOC: MW.ED 14:52
DX: S03.2XXA Dislocation of tooth, initial encounter (principal); W54.1XXA Struck by dog, initial encounter
CPT/HCPCS: 99283

== ENCOUNTER 2022-10-08 18:08 | Emergency (ER) | payer SELFPAY ==
[2022-10-08 20:28] VITALS: BP 117/69; PULSE 68
== END 2022-10-08 20:27 | disposition home or self-care (01) ==
LOC: MW.ED 18:08
DX: S16.1XXA Strain of muscle, fascia and tendon at neck level, initial encounter (principal); F17.210 Nicotine dependence, cigarettes, uncomplicated; W01.0XXA Fall on same level from slipping, tripping and stumbling without subsequent striking against object, initial encounter
CPT/HCPCS: 70450; 70450-26; 72125; 72125-26; 99283